=== PATIENT | female | born 1960 | race Caucasian/White ===

== ENCOUNTER 2017-08-26 09:25 | Emergency (ER) | payer OTHER ==
[~2017-08-26] VITALS: Ht 165.1 cm; Wt 68.5 kg
[~2017-08-26 09:25] MED LIST: ALPR-623 PO; CLOP75TA35 PO; HYDR-569 PO
[2017-08-26 09:33] VITALS: BP 137/90
[2017-08-26] MEDS ORDERED: AMOX-580 PO (09:49)
[2017-08-26] MEDS ORDERED: ALBU8.5H8 IH (09:49)
[2017-08-26] MEDS ORDERED: METH4TAB81 PO (09:49)
== END 2017-08-26 10:11 | disposition home or self-care (01) ==
LOC: ER 09:25
DX: J02.9 Acute pharyngitis, unspecified (principal); R19.7 Diarrhea, unspecified; Z86.73 Personal history of transient ischemic attack (TIA), and cerebral infarction without residual deficits
CPT/HCPCS: 99283

== ENCOUNTER 2017-10-29 13:01 | Outpatient (CLI) | payer OTHER ==
[~2017-10-29 13:01] MED LIST changes: +ALBU8.5H8 IH; +METH4TAB81 PO
== END 2017-10-29 23:59 | disposition home or self-care (01) ==
LOC: 64 CT 13:01
PROVIDERS: ATTEND Family Medicine
DX: R10.9 Unspecified abdominal pain (principal)
CPT/HCPCS: 74176

== ENCOUNTER 2018-01-04 00:37 | Outpatient (CLI) | payer OTHER ==
[2018-01-04 09:11] LABS: BASOPHILS # (AUTO) 0.1 X10'3 (0-0.2); BASOPHILS % (AUTO) 1.2 % (0-1); EOSINOPHILS # (AUTO) 0.3 X10'3 (0-0.9); EOSINOPHILS % (AUTO) 4.7 % (0-6); HEMATOCRIT 40.6 % (35.0-45.0); HEMOGLOBIN 14.3 g/dl (12.0-16.0); LYMPHOCYTES # (AUTO) 1.5 X10'3 (1.1-4.8); LYMPHOCYTES % (AUTO) 24.6 % (21-51); MEAN CORPUSCULAR HGB CONC 35.1 % (33.0-36.5); MEAN CORPUSCULAR VOLUME 91.2 FL (78-98); MEAN PLATELET VOLUME 8.7 FL (7.4-10.4); MONOCYTES # (AUTO) 0.4 X10'3 (0-0.9); MONOCYTES % (AUTO) 7.4 % (2-12); NEUTROPHILS # (AUTO) 3.8 X10'3 (1.8-7.7); NEUTROPHILS % (AUTO) 62.1 % (42-75); PLATELET COUNT 248 X10'3 (140-440); RED BLOOD COUNT 4.46 X10'6 (4.20-5.60); RED CELL DISTRIBUTION WIDTH 13.4 % (11.5-14.5)
[2018-01-04 09:37] LABS: ALANINE AMINOTRANSFERASE 26 U/L (12-78); ALBUMIN 3.6 G/DL (3.4-5.0); ALBUMIN/GLOBULIN RATIO 1.2 (1.1-1.5); ALKALINE PHOSPHATASE 94 IU/L (46-116); ANION GAP 10 (8-16); ASPARTATE AMINO TRANSFERASE 16 U/L (10-37); BILIRUBIN,TOTAL 1.1 MG/DL (0.1-1.0); BLOOD UREA NITROGEN 12 MG/DL (7-18); BUN/CREATININE RATIO 14.5 (6.6-38.0); CALCIUM 8.5 MG/DL (8.5-10.1); CHLORIDE 108 MMOL/L (99-107); CHOL/HDL RATIO 2.6 (0.00-4.99); CHOLESTEROL 175 MG/DL (0-200); CREATININE 0.83 MG/DL (0.40-0.90); GLUCOSE 99 MG/DL (70-104); HDL CHOLESTEROL 68 MG/DL (35-60); LDL CHOLESTEROL 99 MG/DL (50-100); POTASSIUM 3.8 MMOL/L (3.5-5.1); SODIUM 143 MMOL/L (135-145); TOTAL CARBON DIOXIDE 25.3 MMOL/L (24-32); TOTAL PROTEIN 6.7 G/DL (6.4-8.2); TRIGLYCERIDES 62 MG/DL (20-135); eGFR 71 ML/MIN
[2018-01-04 09:43] LABS: HEMOGLOBIN A1C 5.4 % (4.5-6.2)
[2018-01-04 10:59] LABS: RHEUM FACTOR QUAL REFLEX TITER NEGATIVE (Neg)
[2018-01-05 08:11] LABS: FSH, SERUM 102.1 mIU/mL (.)
[2018-01-05 13:55] LABS: ANTINUCLEAR ANTIBODIES Negative (Negative)
== END 2018-01-04 23:59 | disposition home or self-care (01) ==
LOC: LAB 00:37
PROVIDERS: ATTEND Family Medicine
DX: Z00.00 Encounter for general adult medical examination without abnormal findings (principal)
CPT/HCPCS: 36415; 80053; 80061; 82533; 83001; 83036; 84439; 84443; 85025; 86038; 86430

== ENCOUNTER 2018-01-07 06:57 | Day surgery (SDC) | payer OTHER ==
[~2018-01-07] VITALS: Ht 152.4 cm; Wt 70.5 kg
[2018-01-07 07:12] VITALS: BP 113/62
[2018-01-07] MEDS ORDERED: ALPR0.5T8 PO (07:22)
[2018-01-07] MEDS ORDERED: DULO60CA64 PO (07:22)
[2018-01-07] MEDS ORDERED: OMEP20CA10 PO (07:23)
[2018-01-07] MEDS ORDERED: RIZA10TA27 PO (07:24)
[2018-01-07] MEDS ORDERED: MIDAZolam 5mg/5ml vial ONE (08:00)
[2018-01-07] MEDS ORDERED: fentaNYL/PF 50MCG/1 ML 2ML syringe ONE (08:00)
[2018-01-07 09:07] VITALS: BP 112/50
[2018-01-07 09:17] VITALS: BP 97/56
[2018-01-07 09:27] VITALS: BP 104/55
[2018-01-07 09:36] VITALS: BP 96/59
== END 2018-01-07 09:40 | disposition home or self-care (01) ==
LOC: GI LAB 06:57
PROVIDERS: ATTEND Internal Medicine Gastroenterology
DX: D12.3 Benign neoplasm of transverse colon (principal); D12.7 Benign neoplasm of rectosigmoid junction; K64.8 Other hemorrhoids; K21.9 Gastro-esophageal reflux disease without esophagitis; F17.210 Nicotine dependence, cigarettes, uncomplicated; Z90.5 Acquired absence of kidney; Z72.89 Other problems related to lifestyle; Z90.710 Acquired absence of both cervix and uterus; Z79.01 Long term (current) use of anticoagulants; Z85.528 Personal history of other malignant neoplasm of kidney; Z88.8 Allergy status to other drugs, medicaments and biological substances; Z86.73 Personal history of transient ischemic attack (TIA), and cerebral infarction without residual deficits; Z79.899 Other long term (current) drug therapy; Z98.890 Other specified postprocedural states
CPT/HCPCS: 45380; 45385; 99152; 99153; J2250; J3010; J7030; A4620; G0500

== ENCOUNTER 2018-01-21 14:26 | Emergency (ER) | payer OTHER ==
[~2018-01-21] VITALS: Ht 152.4 cm; Wt 73.8 kg
[~2018-01-21 14:26] MED LIST changes: -ALBU8.5H8 IH; -ALPR-623 PO; +ALPR0.5T8 PO; +DULO60CA64 PO; -HYDR-569 PO; -METH4TAB81 PO; +OMEP20CA10 PO; +RIZA10TA27 PO
[2018-01-21 14:36] VITALS: BP 116/70
[2018-01-21] MEDS ORDERED: dexamethasone sod phosphate 10mg/ml inj IM STA (14:41)
== END 2018-01-21 15:01 | disposition home or self-care (01) ==
LOC: ER 14:26
DX: T14.8XXA Other injury of unspecified body region, initial encounter (principal); M25.50 Pain in unspecified joint; Z86.73 Personal history of transient ischemic attack (TIA), and cerebral infarction without residual deficits; Z90.710 Acquired absence of both cervix and uterus; Z79.899 Other long term (current) drug therapy; W57.XXXA Bitten or stung by nonvenomous insect and other nonvenomous arthropods, initial encounter; Y93.89 Activity, other specified; Y92.89 Other specified places as the place of occurrence of the external cause; Y99.8 Other external cause status
CPT/HCPCS: 96372; 99283; J1100

== ENCOUNTER 2018-04-23 10:35 | Outpatient (CLI) | payer OTHER | END 2018-04-23 23:59 | disposition home or self-care (01) | LOC: RAD 10:35 | PROVIDERS: ATTEND Pediatrics Sports Medicine | DX: M50.222 Other cervical disc displacement at C5-C6 level (principal); S92.355D Nondisplaced fracture of fifth metatarsal bone, left foot, subsequent encounter for fracture with routine healing; M79.672 Pain in left foot; F17.200 Nicotine dependence, unspecified, uncomplicated; Z68.23 Body mass index [BMI] 23.0-23.9, adult; Z79.899 Other long term (current) drug therapy; Z85.528 Personal history of other malignant neoplasm of kidney; X58.XXXD Exposure to other specified factors, subsequent encounter | CPT/HCPCS: 72141 ==

== ENCOUNTER 2018-06-04 04:33 | Outpatient (CLI) | payer SELFPAY | END 2018-06-04 23:59 | disposition home or self-care (01) | LOC: HW VAS 04:33 | DX: Z13.6 Encounter for screening for cardiovascular disorders (principal) ==

== ENCOUNTER 2018-10-30 14:34 | Emergency (ER) | payer OTHER, SELFPAY ==
[~2018-10-30] VITALS: Ht 152.4 cm; Wt 70.5 kg
[2018-10-30 14:39] VITALS: BP 125/88
[2018-10-30] MEDS ORDERED: BENZ-16 PO (14:49)
[2018-10-30] MEDS ORDERED: pseudoephedrine 30mg tablet PO ONE (14:50)
[2018-10-30] MEDS ORDERED: benzonatate 100mg capsule PO ONE (14:50)
[2018-10-30] MEDS ORDERED: acetaminophen 325mg tablet PO ONE (14:50)
== END 2018-10-30 15:13 | disposition home or self-care (01) ==
LOC: ER 14:34
DX: J06.9 Acute upper respiratory infection, unspecified (principal); R05 Cough; F41.9 Anxiety disorder, unspecified; Z86.73 Personal history of transient ischemic attack (TIA), and cerebral infarction without residual deficits; Z90.710 Acquired absence of both cervix and uterus; Z88.8 Allergy status to other drugs, medicaments and biological substances; Z79.899 Other long term (current) drug therapy
CPT/HCPCS: 99284

== ENCOUNTER 2018-12-10 22:15 | Emergency (ER) | payer OTHER ==
[~2018-12-10] VITALS: Ht 152.4 cm; Wt 70.5 kg
[2018-12-10 22:26] VITALS: BP 128/85
[2018-12-10] MEDS ORDERED: ketorolac trometh inj. 60 MG/2 ML VIAL IM ONE (22:35)
[2018-12-10] MEDS ORDERED: CYCL-1 PO (22:57)
[2018-12-10] MEDS ORDERED: cyclobenzaprine 10mg tablet PO ONE (23:00)
== END 2018-12-10 23:17 | disposition home or self-care (01) ==
LOC: ER 22:16
DX: S39.012A Strain of muscle, fascia and tendon of lower back, initial encounter (principal); M62.830 Muscle spasm of back; M25.561 Pain in right knee; M25.512 Pain in left shoulder; Z90.710 Acquired absence of both cervix and uterus; Z98.890 Other specified postprocedural states; Z86.73 Personal history of transient ischemic attack (TIA), and cerebral infarction without residual deficits; Z88.8 Allergy status to other drugs, medicaments and biological substances; Z79.899 Other long term (current) drug therapy; W01.0XXA Fall on same level from slipping, tripping and stumbling without subsequent striking against object, initial encounter; Y93.89 Activity, other specified; Y92.89 Other specified places as the place of occurrence of the external cause; Y99.8 Other external cause status
CPT/HCPCS: 72100; 96372; 99284; J1885

== ENCOUNTER 2018-12-27 11:07 | Outpatient (CLI) | payer OTHER ==
[~2018-12-27 11:07] MED LIST changes: +CYCL-1 PO; -OMEP20CA10 PO; +OMEP20CA11 PO
== END 2018-12-27 23:59 | disposition home or self-care (01) ==
LOC: RAD 11:07
PROVIDERS: ATTEND Family Medicine
DX: R10.11 Right upper quadrant pain (principal); Z90.5 Acquired absence of kidney
CPT/HCPCS: 76700

== ENCOUNTER 2019-04-16 15:05 | Emergency (ER) | payer SELFPAY ==
[~2019-04-16] VITALS: Ht 152.4 cm; Wt 70.5 kg
[~2019-04-16 15:05] MED LIST changes: -DULO60CA64 PO; +DULO60CA65 PO
[2019-04-16 15:13] VITALS: BP 126/86
[2019-04-16] MEDS ORDERED: AMOX-580 PO (16:39)
== END 2019-04-16 17:11 | disposition home or self-care (01) ==
LOC: ER 15:06
DX: J32.9 Chronic sinusitis, unspecified (principal); F41.9 Anxiety disorder, unspecified; Z86.73 Personal history of transient ischemic attack (TIA), and cerebral infarction without residual deficits; Z90.710 Acquired absence of both cervix and uterus; Z88.8 Allergy status to other drugs, medicaments and biological substances; Z88.6 Allergy status to analgesic agent
CPT/HCPCS: 99283

== ENCOUNTER 2019-04-29 07:10 | Outpatient (CLI) | payer SELFPAY ==
[~2019-04-29 07:10] MED LIST changes: +AMOX-580 PO
[2019-04-29 11:02] LABS: HEMOGLOBIN A1C 5.1 % (4.5-6.2)
[2019-04-29 11:14] LABS: CHOL/HDL RATIO 3.15 (0.00-4.99)
== END 2019-04-29 23:59 | disposition home or self-care (01) ==
LOC: HW HEART 07:10
DX: Z13.6 Encounter for screening for cardiovascular disorders (principal)
CPT/HCPCS: 36415

== ENCOUNTER 2019-05-20 16:00 | Emergency (ER) | payer OTHER, SELFPAY ==
[~2019-05-20] VITALS: Ht 152.4 cm; Wt 68.0 kg
[~2019-05-20 16:00] MED LIST changes: -AMOX-580 PO
[2019-05-20 16:04] VITALS: BP 154/79
[2019-05-20] MEDS ORDERED: ketorolac trometh inj. 60 MG/2 ML VIAL IM ONE ×2 (16:10→16:20)
[2019-05-20] MEDS ORDERED: TRAM50TA2 PO (16:14)
[2019-05-20] MEDS ORDERED: CYCL-1 PO (16:14)
== END 2019-05-20 16:43 | disposition home or self-care (01) ==
LOC: ER 16:00
DX: S16.1XXA Strain of muscle, fascia and tendon at neck level, initial encounter (principal); M62.830 Muscle spasm of back; F41.9 Anxiety disorder, unspecified; F10.99 Alcohol use, unspecified with unspecified alcohol-induced disorder; Z90.710 Acquired absence of both cervix and uterus; Z98.890 Other specified postprocedural states; Z86.73 Personal history of transient ischemic attack (TIA), and cerebral infarction without residual deficits; Z88.8 Allergy status to other drugs, medicaments and biological substances; Z79.899 Other long term (current) drug therapy; V87.7XXA Person injured in collision between other specified motor vehicles (traffic), initial encounter; Y93.89 Activity, other specified; Y92.410 Unspecified street and highway as the place of occurrence of the external cause; Y99.8 Other external cause status; Y90.9 Presence of alcohol in blood, level not specified
CPT/HCPCS: 96372; 99283; J1885

== ENCOUNTER 2019-07-04 09:45 | Outpatient (CLI) | payer OTHER ==
[~2019-07-04] VITALS: Ht 152.4 cm; Wt 68.5 kg
[~2019-07-04 09:45] MED LIST changes: +OMEP-297 PO; -OMEP20CA11 PO
[2019-07-04] MEDS ORDERED: NORMAL SALINE IV ONE (11:00)
[2019-07-04] MEDS ORDERED: SINCALIDE IV ONE (11:00)
== END 2019-07-04 23:59 | disposition home or self-care (01) ==
LOC: RAD 09:45
PROVIDERS: ATTEND Family Medicine
DX: R10.11 Right upper quadrant pain (principal); F17.200 Nicotine dependence, unspecified, uncomplicated; Z72.89 Other problems related to lifestyle; Z90.710 Acquired absence of both cervix and uterus; Z85.528 Personal history of other malignant neoplasm of kidney; Z98.890 Other specified postprocedural states
CPT/HCPCS: 78227; A9537; J2805

== ENCOUNTER 2019-07-04 09:51 | Outpatient (CLI) | payer OTHER | END 2019-07-04 23:59 | disposition home or self-care (01) | LOC: RAD 09:51 | PROVIDERS: ATTEND Chiropractor | DX: S33.5XXA Sprain of ligaments of lumbar spine, initial encounter (principal); M48.061 Spinal stenosis, lumbar region without neurogenic claudication; X58.XXXA Exposure to other specified factors, initial encounter; Y93.89 Activity, other specified; Y92.89 Other specified places as the place of occurrence of the external cause; Y99.8 Other external cause status | CPT/HCPCS: 72148 ==

== ENCOUNTER 2019-07-21 03:49 | Emergency (ER) | payer OTHER ==
[~2019-07-21] VITALS: Ht 152.4 cm; Wt 61.1 kg
[2019-07-21] MEDS ORDERED: normal saline 1000ml 1,000 ML IV ONE (04:05)
--- NOTE | 2019-07-21 04:09 | NUR ---
DISCUSSED PT'S EMESIS WITH LES GUERRA; NEW ORDER FOR [facility] RECEIVED.
[2019-07-21] MEDS ORDERED: ondansetron/PF 4mg/2ml inj IV ONE ×2 (04:10→04:30)
[2019-07-21] MEDS ORDERED: famotidine/PF 10 mg/ml inj IV ONE (04:15)
[2019-07-21] MEDS ORDERED: pantoprazole 40 MG vial IV ONE (04:15)
[2019-07-21 04:27] LABS: BASOPHILS # (AUTO) 0.1 X10'3 (0-0.2); BASOPHILS % (AUTO) 0.5 % (0-1); EOSINOPHILS % (AUTO) 0.3 % (0-6); HEMATOCRIT 45.2 % (35.0-45.0); HEMOGLOBIN 15.5 g/dl (12.0-16.0); LYMPHOCYTES # (AUTO) 1.9 X10'3 (1.1-4.8); MEAN CORPUSCULAR HEMOGLOBIN 31.9 PG (27.0-31.0); MEAN CORPUSCULAR HGB CONC 34.3 g/dL (33.0-36.5); MEAN CORPUSCULAR VOLUME 92.9 FL (78-98); MEAN PLATELET VOLUME 8.3 FL (7.4-10.4); MONOCYTES # (AUTO) 0.8 X10'3 (0-0.9); MONOCYTES % (AUTO) 5.6 % (2-12); NEUTROPHILS # (AUTO) 11.5 X10'3 (1.8-7.7); NEUTROPHILS % (AUTO) 80.6 % (42-75); PLATELET COUNT 290 X10'3 (140-440); RED BLOOD COUNT 4.86 X10'6 (4.20-5.60); RED CELL DISTRIBUTION WIDTH 13.7 % (11.5-14.5); WHITE BLOOD COUNT 14.3 X10'3 (4.5-11.0)
[2019-07-21] MEDS ORDERED: normal saline 1000ML IV soln IVB ONE (04:30)
[2019-07-21] MEDS ORDERED: morphine 4 MG/ML inj SYRINge IV PRN (04:30)
[2019-07-21 04:37] LABS: ALANINE AMINOTRANSFERASE 28 U/L (12-78); ALBUMIN 4.4 G/DL (3.4-5.0); ALBUMIN/GLOBULIN RATIO 1.3 (1.1-1.5); ALKALINE PHOSPHATASE 82 IU/L (46-116); ANION GAP 12 (8-16); ASPARTATE AMINO TRANSFERASE 17 U/L (10-37); BILIRUBIN,TOTAL 1.1 MG/DL (0.1-1.0); BLOOD UREA NITROGEN 24 MG/DL (7-18); BUN/CREATININE RATIO 23.3 (6.6-38.0); CALCIUM 9.8 MG/DL (8.5-10.1); CHLORIDE 104 MMOL/L (99-107); CREATININE 1.03 MG/DL (0.40-0.90); GLUCOSE 132 MG/DL (70-104); LIPASE 65 U/L (73-393); POTASSIUM 3.3 MMOL/L (3.5-5.1); SODIUM 140 MMOL/L (135-145); TOTAL CARBON DIOXIDE 23.7 MMOL/L (24-32); TOTAL PROTEIN 7.7 G/DL (6.4-8.2); eGFR 55 ML/MIN
[2019-07-21 04:50] VITALS: BP 169/97
[2019-07-21] MEDS ORDERED: proCHLORperazine 10 MG/2 ml inj IV ONE (04:50)
[2019-07-21 04:52] LABS: OCCULT BLOOD STOOL NEGATIVE (Neg)
[2019-07-21] MEDS ORDERED: ONDA4TAB6 PO (05:39)
== END 2019-07-21 05:48 | disposition home or self-care (01) ==
LOC: EEVIPCON 03:49 → ER 03:49
DX: K29.70 Gastritis, unspecified, without bleeding (principal); E86.0 Dehydration; F41.9 Anxiety disorder, unspecified; F10.99 Alcohol use, unspecified with unspecified alcohol-induced disorder; Z86.73 Personal history of transient ischemic attack (TIA), and cerebral infarction without residual deficits; Z90.710 Acquired absence of both cervix and uterus; Z98.890 Other specified postprocedural states; Z88.8 Allergy status to other drugs, medicaments and biological substances; Z79.899 Other long term (current) drug therapy; Y90.9 Presence of alcohol in blood, level not specified
CPT/HCPCS: 36415; 74176; 80053; 82272; 83690; 85025; 96361; 96374; 96375; 99284; C9113; J0780; J2405; J3490; J7030

== ENCOUNTER 2019-07-23 11:07 | Inpatient (IN) | payer OTHER ==
[~2019-07-23] VITALS: Ht 152.4 cm; Wt 72.5 kg
[~2019-07-23 11:07] MED LIST changes: +ONDA4TAB6 PO
[2019-07-23 11:51] LABS: BASOPHILS # (AUTO) 0.1 X10'3 (0-0.2); BASOPHILS % (AUTO) 0.8 % (0-1); EOSINOPHILS # (AUTO) 0.2 X10'3 (0-0.9); HEMATOCRIT 46.4 % (35.0-45.0); HEMOGLOBIN 16.4 g/dl (12.0-16.0); MEAN CORPUSCULAR HEMOGLOBIN 32.5 PG (27.0-31.0); MEAN CORPUSCULAR HGB CONC 35.4 g/dL (33.0-36.5); MEAN CORPUSCULAR VOLUME 91.9 FL (78-98); MEAN PLATELET VOLUME 8.1 FL (7.4-10.4); MONOCYTES # (AUTO) 0.8 X10'3 (0-0.9); MONOCYTES % (AUTO) 7.2 % (2-12); NEUTROPHILS # (AUTO) 7.8 X10'3 (1.8-7.7); PLATELET COUNT 285 X10'3 (140-440); RED BLOOD COUNT 5.05 X10'6 (4.20-5.60); RED CELL DISTRIBUTION WIDTH 13.1 % (11.5-14.5); WHITE BLOOD COUNT 10.9 X10'3 (4.5-11.0)
[2019-07-23 11:56] LABS: ALANINE AMINOTRANSFERASE 32 U/L (12-78); ALBUMIN 3.9 G/DL (3.4-5.0); ALBUMIN/GLOBULIN RATIO 1.3 (1.1-1.5); ALKALINE PHOSPHATASE 81 IU/L (46-116); ANION GAP 9 (8-16); ASPARTATE AMINO TRANSFERASE 13 U/L (10-37); BILIRUBIN,TOTAL 1.8 MG/DL (0.1-1.0); BLOOD UREA NITROGEN 18 MG/DL (7-18); BUN/CREATININE RATIO 14.4 (6.6-38.0); CALCIUM 9.2 MG/DL (8.5-10.1); CHLORIDE 103 MMOL/L (99-107); CREATININE 1.25 MG/DL (0.40-0.90); GLUCOSE 126 MG/DL (70-104); LIPASE 120 U/L (73-393); POTASSIUM 3.1 MMOL/L (3.5-5.1); SODIUM 138 MMOL/L (135-145); TOTAL CARBON DIOXIDE 26.2 MMOL/L (24-32); eGFR 44 ML/MIN
[2019-07-23] MEDS ORDERED: ondansetron/PF 4mg/2ml inj IV ONE (12:15)
[2019-07-23] MEDS ORDERED: morphine 4 MG/ML inj SYRINge IV PRN (12:15)
[2019-07-23] MEDS ORDERED: normal saline 1000ML IV soln IVB ONE (12:15)
[2019-07-23] MEDS ORDERED: acetaminophen 650mg rectal suppository RC PRN (12:45)
[2019-07-23] MEDS ORDERED: acetaminophen 325mg tablet PO PRN ×2 (12:45)
[2019-07-23] MEDS ORDERED: magnesium Cl slow-release 64mg tablet PO PRN (12:45)
[2019-07-23] MEDS ORDERED: bisacodyl 10mg suppository rectal RC PRN (12:45)
[2019-07-23] MEDS ORDERED: metoclopramide 5 mg/ml inj IV PRN (12:45)
[2019-07-23] MEDS ORDERED: potassium 10mEq/100ml NS w/LIDOcaine (10mg/bag) IV ONE (12:45)
[2019-07-23] MEDS ORDERED: magnesium hydroxide 30ml (MOM) UD suspension PO PRN (12:45)
[2019-07-23] MEDS ORDERED: potassium CL 10mEq/100ml bag 100 ML IV PRN (12:45)
[2019-07-23] MEDS ORDERED: diphenhydrAMINE 25mg capsule PO PRN (12:45)
[2019-07-23] MEDS ORDERED: HYDROcodone/acetaminophen 10/325mg tab PO PRN (12:45)
[2019-07-23] MEDS ORDERED: pantoprazole 40 MG vial IV SCH (12:45)
[2019-07-23] MEDS ORDERED: diphenhydrAMINE 50 mg/ml inj IV PRN (12:45)
[2019-07-23] MEDS ORDERED: mag hydrox/Alum hydrox/simeth 30ml oral suspension PO PRN ×2 (12:45)
[2019-07-23] MEDS ORDERED: HYDROcodone/acetaminophen 5mg/325mg tablet PO PRN (12:45)
[2019-07-23] MEDS ORDERED: magnesium 4gm in 100ml NS 100 ML IV PRN (12:45)
[2019-07-23] MEDS ORDERED: magnesium 2GM in 50ml NS 50 ML IV PRN (12:45)
[2019-07-23] MEDS ORDERED: potassium Cl 20 mEq SR tablet PO PRN ×2 (12:45)
[2019-07-23 13:05] LABS: PHOSPHORUS 2.9 MG/DL (2.3-4.5)
[2019-07-23] MEDS ORDERED: potassium Cl 10 mEq/100mL bag IV ONE (13:05)
[2019-07-23 13:18] LABS: H PYLORI ANTIBODY NEGATIVE (Neg)
[2019-07-23] MEDS ORDERED: RIZA10TA27 PO (14:29)
[2019-07-23] MEDS ORDERED: PANT-47 PO (14:29)
[2019-07-23] MEDS ORDERED: CLOP75TA33 PO (14:30)
[2019-07-23] MEDS ORDERED: DULO-31 PO (14:31)
[2019-07-23] MEDS: ondansetron/PF 4mg/2ml inj IV PRN ×2 (14:33→23:08)
--- NOTE | 2019-07-23 15:14 | NUR ---
RECEIVED REPORT AND PATIENT FROM ER.
[2019-07-23] MEDS ORDERED: pneumococcal 23-VAL P-sac vacc 25 mcg/0.5ml vial IMVAC ONE (15:40)
[2019-07-23 16:00] LABS: URINE HCG NEGATIVE (NEG)
[2019-07-23 16:03] LABS: COLOR,URINE YELLOW (Yellow); GLUCOSE, URINE NEGATIVE (Neg); KETONES,URINE NEGATIVE (Neg); LEUKOCYTE ESTERASE ,URINE TRACE (Neg); NITRITES, URINE NEGATIVE (Neg); OCCULT BLOOD,URINE SMALL (Neg); PH,URINE 6.5 (4.8-8.0); PROTEIN,URINE NEGATIVE (Neg); UROBILINOGEN,URINE 0.2 E.U/dL (0.2-1.0)
[2019-07-23 16:09] LABS: CLARITY,URINE SLIGHTLY CLOUDY (Clear); UA COLLECTION TYPE CLN CATCH MIDSTREAM
[2019-07-23] MEDS: ringers solution, lacted 1,000 ML IV SCH (16:09)
[2019-07-23 16:10] LABS: BACTERIA,URINE 1+ /HPF (Neg); MUCUS STRANDS MODERATE /LPF (Neg); RBC,URINE 0-2 /HPF (0-2); SQUAMOUS EPITHELIAL CELL,UR FEW /LPF (FEW); WBC,URINE 0-4 /HPF (0-4)
[2019-07-23 16:11] LABS: HYALINE CASTS 0-3 /LPF (NEGATIVE)
[2019-07-23] MEDS: potassium CL 10mEq/100ml bag 100 ML IV PRN ×3 (17:50→20:25)
[2019-07-23 18:00] VITALS: BP 112/84
--- NOTE | 2019-07-23 18:41 | NUR ---
Patient in room [facility] 4006. I have received report from Diana MENDOZA and had the opportunity to ask questions and assume patient care.
[2019-07-23] MEDS: docusate sod 100mg capsule PO SCH (19:37)
[2019-07-23] MEDS: heparin, porcine 5000 units/ml vial SQ SCH (19:39)
[2019-07-23] MEDS: K and/or MAG REPLACEMENT MC SCH (19:41)
[2019-07-23] MEDS: clopidogrel 75mg tablet PO SCH (20:24)
[2019-07-23 22:00] VITALS: BP 111/79
[2019-07-24] VITALS (10 sets, daily range): BP systolic 107–126; BP diastolic 55–88
[2019-07-24] MEDS: temazepam 15mg capsule PO PRN ×3 (01:38→23:16)
[2019-07-24] MEDS: ringers solution, lacted 1,000 ML IV SCH ×3 (03:54→18:45)
[2019-07-24 06:20] LABS: BASOPHILS # (AUTO) 0.1 X10'3 (0-0.2); EOSINOPHILS # (AUTO) 0.3 X10'3 (0-0.9); EOSINOPHILS % (AUTO) 3.8 % (0-6); HEMATOCRIT 36.6 % (35.0-45.0); HEMOGLOBIN 12.9 g/dl (12.0-16.0); LYMPHOCYTES # (AUTO) 2.6 X10'3 (1.1-4.8); LYMPHOCYTES % (AUTO) 37.9 % (21-51); MEAN CORPUSCULAR HEMOGLOBIN 32.2 PG (27.0-31.0); MEAN CORPUSCULAR HGB CONC 35.1 g/dL (33.0-36.5); MEAN CORPUSCULAR VOLUME 91.7 FL (78-98); MEAN PLATELET VOLUME 8.1 FL (7.4-10.4); MONOCYTES # (AUTO) 0.5 X10'3 (0-0.9); MONOCYTES % (AUTO) 7.7 % (2-12); NEUTROPHILS # (AUTO) 3.5 X10'3 (1.8-7.7); NEUTROPHILS % (AUTO) 49.6 % (42-75); PLATELET COUNT 208 X10'3 (140-440); RED CELL DISTRIBUTION WIDTH 13.3 % (11.5-14.5)
[2019-07-24 06:34] LABS: ALANINE AMINOTRANSFERASE 23 U/L (12-78); ALBUMIN 2.6 G/DL (3.4-5.0); ALBUMIN/GLOBULIN RATIO 1.1 (1.1-1.5); ALKALINE PHOSPHATASE 58 IU/L (46-116); ANION GAP 8 (8-16); ASPARTATE AMINO TRANSFERASE 11 U/L (10-37); BILIRUBIN,TOTAL 1.4 MG/DL (0.1-1.0); BLOOD UREA NITROGEN 9 MG/DL (7-18); BUN/CREATININE RATIO 10.8 (6.6-38.0); CHLORIDE 111 MMOL/L (99-107); CREATININE 0.83 MG/DL (0.40-0.90); GLUCOSE 95 MG/DL (70-104); MAGNESIUM 1.8 MG/DL (1.5-2.4); PHOSPHORUS 2.9 MG/DL (2.3-4.5); POTASSIUM 3.5 MMOL/L (3.5-5.1); SODIUM 143 MMOL/L (135-145); TOTAL CARBON DIOXIDE 24.5 MMOL/L (24-32); TOTAL PROTEIN 4.9 G/DL (6.4-8.2); eGFR 70 ML/MIN
--- NOTE | 2019-07-24 06:34 | NUR ---
Problems reprioritized. Patient report given, questions answered & plan of care reviewed with Elo MENDOZA.
[2019-07-24] MEDS: heparin, porcine 5000 units/ml vial SQ SCH ×2 (08:00→20:04)
[2019-07-24] MEDS: K and/or MAG REPLACEMENT MC SCH ×2 (08:09→20:00)
[2019-07-24] MEDS: pantoprazole 40mg Tablet.DR PO SCH (08:13)
[2019-07-24] MEDS: docusate sod 100mg capsule PO SCH ×2 (08:13→20:02)
--- NOTE | 2019-07-24 11:09 | NUR ---
Patient to GI LAB
[2019-07-24] MEDS ORDERED: LIDOcaine Viscous 15ml cup ONE (11:19)
[2019-07-24] MEDS ORDERED: MIDAZolam 5mg/5ml vial ONE (11:19)
[2019-07-24] MEDS ORDERED: fentaNYL/PF 50MCG/1 ML 2ML syringe ONE ×2 (11:19→13:38)
--- NOTE | 2019-07-24 18:31 | NUR ---
Problems reprioritized. Patient report given, questions answered & plan of care reviewed with Salbador MENDOZA.
[2019-07-24] MEDS ORDERED: PANT-47 PO (18:51)
[2019-07-24] MEDS: clopidogrel 75mg tablet PO SCH (20:02)
[2019-07-25] MEDS: ringers solution, lacted 1,000 ML IV SCH (04:45)
[2019-07-25 05:59] LABS: BASOPHILS # (AUTO) 0.1 X10'3 (0-0.2); EOSINOPHILS # (AUTO) 0.3 X10'3 (0-0.9); EOSINOPHILS % (AUTO) 3.9 % (0-6); HEMATOCRIT 37.4 % (35.0-45.0); HEMOGLOBIN 13.4 g/dl (12.0-16.0); LYMPHOCYTES # (AUTO) 2.3 X10'3 (1.1-4.8); LYMPHOCYTES % (AUTO) 33.2 % (21-51); MEAN CORPUSCULAR HEMOGLOBIN 32.6 PG (27.0-31.0); MEAN CORPUSCULAR HGB CONC 35.8 g/dL (33.0-36.5); MEAN PLATELET VOLUME 8.4 FL (7.4-10.4); MONOCYTES # (AUTO) 0.6 X10'3 (0-0.9); MONOCYTES % (AUTO) 8.3 % (2-12); NEUTROPHILS # (AUTO) 3.8 X10'3 (1.8-7.7); NEUTROPHILS % (AUTO) 53.6 % (42-75); PLATELET COUNT 211 X10'3 (140-440); RED BLOOD COUNT 4.11 X10'6 (4.20-5.60); RED CELL DISTRIBUTION WIDTH 13.3 % (11.5-14.5)
[2019-07-25 06:00] VITALS: BP 138/85
[2019-07-25 06:14] LABS: ALANINE AMINOTRANSFERASE 26 U/L (12-78); ALBUMIN 3.1 G/DL (3.4-5.0); ALBUMIN/GLOBULIN RATIO 1.3 (1.1-1.5); ALKALINE PHOSPHATASE 67 IU/L (46-116); ANION GAP 5 (8-16); ASPARTATE AMINO TRANSFERASE 13 U/L (10-37); BILIRUBIN,TOTAL 0.5 MG/DL (0.1-1.0); BLOOD UREA NITROGEN 10 MG/DL (7-18); BUN/CREATININE RATIO 10.5 (6.6-38.0); CALCIUM 8.5 MG/DL (8.5-10.1); CHLORIDE 109 MMOL/L (99-107); CREATININE 0.95 MG/DL (0.40-0.90); GLUCOSE 113 MG/DL (70-104); MAGNESIUM 2.1 MG/DL (1.5-2.4); PHOSPHORUS 2.6 MG/DL (2.3-4.5); POTASSIUM 3.5 MMOL/L (3.5-5.1); SODIUM 142 MMOL/L (135-145); TOTAL CARBON DIOXIDE 27.7 MMOL/L (24-32); TOTAL PROTEIN 5.4 G/DL (6.4-8.2); eGFR 60 ML/MIN
--- NOTE | 2019-07-25 06:45 | NUR ---
Patient in room [facility]006. I have received report from ANALILIA MENDOZA and had the opportunity to ask questions and assume patient care.
[2019-07-25] MEDS: K and/or MAG REPLACEMENT MC SCH (08:00)
[2019-07-25] MEDS ORDERED: duloxetine 30mg CAPSULE.DR PO SCH (08:00)
[2019-07-25] MEDS: docusate sod 100mg capsule PO SCH (09:00)
[2019-07-25] MEDS: pantoprazole 40mg Tablet.DR PO SCH (09:00)
[2019-07-25] MEDS: heparin, porcine 5000 units/ml vial SQ SCH (09:01)
--- NOTE | 2019-07-25 10:12 | NUR ---
PAGER ID: [phone] MESSAGE: [id number] RE: [id number] FYI SHE IS READY TO DC, DO YOU NEED TO SEE HER?
--- NOTE | 2019-07-28 16:09 | NUR ---
Case Management DC follow-up: LM w/pt re hospital stay/DC
--- NOTE | 2019-07-29 12:58 | NUR ---
Case Management DC follow-up: Pt returned call, reported everything was great with regard to her care.
== END 2019-07-25 12:00 | disposition home or self-care (01) | DRG 392 ==
LOC: ER 11:08 → ED HOLD 12:41 → ORTHO 4S 15:15
PROVIDERS: ADMIT Family Medicine; ATTEND Family Medicine
PROC: 3E0234Z Introduction of Serum, Toxoid and Vaccine into Muscle, Percutaneous Approach (ICD-10-PCS; 2019-07-23)
PROC: 0DB68ZX Excision of Stomach, Via Natural or Artificial Opening Endoscopic, Diagnostic (ICD-10-PCS; principal; 2019-07-24)
DX: K29.70 Gastritis, unspecified, without bleeding (principal); N17.9 Acute kidney failure, unspecified; E86.0 Dehydration; E87.6 Hypokalemia; F41.1 Generalized anxiety disorder; G43.909 Migraine, unspecified, not intractable, without status migrainosus; K20.9 Esophagitis, unspecified; F17.210 Nicotine dependence, cigarettes, uncomplicated; Z80.1 Family history of malignant neoplasm of trachea, bronchus and lung; Z82.0 Family history of epilepsy and other diseases of the nervous system; Z82.49 Family history of ischemic heart disease and other diseases of the circulatory system; Z85.51 Personal history of malignant neoplasm of bladder; Z85.528 Personal history of other malignant neoplasm of kidney; Z86.73 Personal history of transient ischemic attack (TIA), and cerebral infarction without residual deficits; Z90.5 Acquired absence of kidney; Z90.711 Acquired absence of uterus with remaining cervical stump; Z23 Encounter for immunization; Z88.6 Allergy status to analgesic agent; Z88.8 Allergy status to other drugs, medicaments and biological substances
CPT/HCPCS: 36415; 43239; 80053; 81001; 81025; 83690; 83735; 84100; 85025; 86677; 87081; 87088; 90732; 93978; 99152; 99285; A4620; C9113; G0378; J1644; J2250; J2270; J2405; J3010; J3480; J7040; J7120

== ENCOUNTER 2019-11-05 12:55 | Outpatient (CLI) | payer OTHER ==
[~2019-11-05 12:55] MED LIST changes: -ALPR0.5T8 PO; +CLOP75TA33 PO; -CLOP75TA35 PO; -CYCL-1 PO; +DULO-31 PO; -DULO60CA65 PO; -OMEP-297 PO; -ONDA4TAB6 PO; +PANT-47 PO
[2019-11-05] MEDS ORDERED: LIDOcaine 2% 5ml jelly ONE (13:35)
== END 2019-11-05 13:57 | disposition home or self-care (01) ==
LOC: WOUND CARE 12:55 → EDSTATUS 13:00 → WOUND CARE 13:57
PROVIDERS: ATTEND Nurse Practitioner
DX: L97.821 Non-pressure chronic ulcer of other part of left lower leg limited to breakdown of skin (principal); G43.909 Migraine, unspecified, not intractable, without status migrainosus; F41.9 Anxiety disorder, unspecified; F17.210 Nicotine dependence, cigarettes, uncomplicated; Z86.73 Personal history of transient ischemic attack (TIA), and cerebral infarction without residual deficits; Z90.5 Acquired absence of kidney; Z88.6 Allergy status to analgesic agent; Z88.8 Allergy status to other drugs, medicaments and biological substances; Z85.51 Personal history of malignant neoplasm of bladder; Z85.528 Personal history of other malignant neoplasm of kidney; Z90.710 Acquired absence of both cervix and uterus; Z79.899 Other long term (current) drug therapy; Z98.890 Other specified postprocedural states
CPT/HCPCS: G0463

== ENCOUNTER 2019-11-10 13:30 | Outpatient (CLI) | payer OTHER ==
[2019-11-10] MEDS ORDERED: mupirocin 2% ointment 22GM ONE (13:43)
== END 2019-11-10 13:57 | disposition home or self-care (01) ==
LOC: WOUND CARE 13:30 → EDSTATUS 13:40 → WOUND CARE 13:57
PROVIDERS: ATTEND Nurse Practitioner
DX: L97.821 Non-pressure chronic ulcer of other part of left lower leg limited to breakdown of skin (principal); G43.909 Migraine, unspecified, not intractable, without status migrainosus; F41.9 Anxiety disorder, unspecified; F17.210 Nicotine dependence, cigarettes, uncomplicated; Z86.73 Personal history of transient ischemic attack (TIA), and cerebral infarction without residual deficits; Z90.5 Acquired absence of kidney; Z85.51 Personal history of malignant neoplasm of bladder; Z85.528 Personal history of other malignant neoplasm of kidney; Z90.710 Acquired absence of both cervix and uterus; Z79.899 Other long term (current) drug therapy; Z98.890 Other specified postprocedural states
CPT/HCPCS: G0463

== ENCOUNTER 2020-02-05 15:24 | Outpatient (CLI) | payer OTHER ==
[2020-02-05 19:10] LABS: CLARITY,URINE CLEAR (Clear); COLOR,URINE YELLOW (Yellow); GLUCOSE, URINE NEGATIVE (Neg); KETONES,URINE NEGATIVE (Neg); LEUKOCYTE ESTERASE ,URINE NEGATIVE (Neg); NITRITES, URINE NEGATIVE (Neg); OCCULT BLOOD,URINE SMALL (Neg); PROTEIN,URINE NEGATIVE (Neg); UROBILINOGEN,URINE 0.2 E.U/dL (0.2-1.0)
[2020-02-05 19:13] LABS: UA COLLECTION TYPE NON-SPECIFIED
[2020-02-05 19:15] LABS: BACTERIA,URINE NONE SEEN /HPF (Neg); RBC,URINE 0-2 /HPF (0-2); SQUAMOUS EPITHELIAL CELL,UR FEW /LPF (FEW); WBC,URINE 0-4 /HPF (0-4)
[2020-02-05 19:46] LABS: BASOPHILS # (AUTO) 0.1 X10'3 (0-0.2); BASOPHILS % (AUTO) 1.4 % (0-1); EOSINOPHILS # (AUTO) 0.2 X10'3 (0-0.9); EOSINOPHILS % (AUTO) 3.1 % (0-6); HEMATOCRIT 39.8 % (35.0-45.0); HEMOGLOBIN 13.4 g/dl (12.0-16.0); LYMPHOCYTES # (AUTO) 1.9 X10'3 (1.1-4.8); LYMPHOCYTES % (AUTO) 26.3 % (21-51); MEAN CORPUSCULAR HEMOGLOBIN 31.6 PG (27.0-31.0); MEAN CORPUSCULAR HGB CONC 33.7 g/dL (33.0-36.5); MEAN PLATELET VOLUME 8.6 FL (7.4-10.4); MONOCYTES # (AUTO) 0.4 X10'3 (0-0.9); MONOCYTES % (AUTO) 5.3 % (2-12); NEUTROPHILS # (AUTO) 4.5 X10'3 (1.8-7.7); NEUTROPHILS % (AUTO) 63.9 % (42-75); PLATELET COUNT 260 X10'3 (140-440); RED BLOOD COUNT 4.23 X10'6 (4.20-5.60); RED CELL DISTRIBUTION WIDTH 13.7 % (11.5-14.5); WHITE BLOOD COUNT 7.1 X10'3 (4.5-11.0)
[2020-02-05 20:09] LABS: RHEUM FACTOR QUAL REFLEX TITER NEGATIVE (Neg)
[2020-02-05 20:12] LABS: % IRON SATURATION 28 % (11-46); IRON 104 UG/DL (49-151); TOTAL IRON BINDING CAPACITY 369 UG/DL (259-388)
[2020-02-05 20:13] LABS: ALANINE AMINOTRANSFERASE 26 U/L (12-78); ALBUMIN 3.9 G/DL (3.4-5.0); ALBUMIN/GLOBULIN RATIO 1.3 (1.1-1.5); ALKALINE PHOSPHATASE 82 IU/L (46-116); ANION GAP 7 (8-16); ASPARTATE AMINO TRANSFERASE 16 U/L (10-37); BLOOD UREA NITROGEN 16 MG/DL (7-18); BUN/CREATININE RATIO 17.8 (6.6-38.0); CALCIUM 8.5 MG/DL (8.5-10.1); CHLORIDE 107 MMOL/L (99-107); CHOLESTEROL 182 MG/DL (0-200); FERRITIN 78 NG/ML (8-252); GLUCOSE 90 MG/DL (70-104); HDL CHOLESTEROL 61 MG/DL (35-60); LDL CHOLESTEROL 107 MG/DL (50-100); POTASSIUM 3.6 MMOL/L (3.5-5.1); SODIUM 141 MMOL/L (135-145); TOTAL CARBON DIOXIDE 26.7 MMOL/L (24-32); TOTAL PROTEIN 6.9 G/DL (6.4-8.2); TRIGLYCERIDES 58 MG/DL (20-135); eGFR 64 ML/MIN
== END 2020-02-05 23:59 | disposition home or self-care (01) ==
LOC: LAB 15:24
DX: Z00.00 Encounter for general adult medical examination without abnormal findings (principal)
CPT/HCPCS: 36415; 80053; 80061; 81001; 82330; 82728; 83540; 83550; 83970; 84439; 84443; 85025; 85651; 86140; 86430

== ENCOUNTER 2020-03-10 19:32 | Emergency (ER) | payer BC ==
[~2020-03-10] VITALS: Ht 149.9 cm; Wt 71.4 kg
[2020-03-10 19:39] VITALS: BP 122/82
== END 2020-03-10 20:09 | disposition home or self-care (01) ==
LOC: EEVIPCON 19:33 → ER 19:33
DX: M79.642 Pain in left hand (principal); M79.89 Other specified soft tissue disorders; F41.9 Anxiety disorder, unspecified; F17.200 Nicotine dependence, unspecified, uncomplicated; Z86.73 Personal history of transient ischemic attack (TIA), and cerebral infarction without residual deficits; Z85.9 Personal history of malignant neoplasm, unspecified; Z90.710 Acquired absence of both cervix and uterus; Z98.890 Other specified postprocedural states; Z72.89 Other problems related to lifestyle; Z88.6 Allergy status to analgesic agent; Z88.8 Allergy status to other drugs, medicaments and biological substances; Z79.899 Other long term (current) drug therapy
CPT/HCPCS: 73130; 99283

== ENCOUNTER 2020-06-29 15:08 | Outpatient (CLI) | payer BC | END 2020-06-29 23:59 | disposition home or self-care (01) | LOC: LAB 15:08 | PROVIDERS: ATTEND Family Medicine | DX: R05 Cough (principal) | CPT/HCPCS: 71046 ==

== ENCOUNTER 2020-10-15 00:28 | Emergency (ER) | payer BC ==
[~2020-10-15] VITALS: Ht 149.9 cm; Wt 68.6 kg
[2020-10-15 00:33] VITALS: BP 123/83
[2020-10-15] MEDS ORDERED: ketorolac trometh. 30mg/ml inj. IV STA (00:39)
--- NOTE | 2020-10-15 00:41 | NUR ---
COMMON PAIN FOR HER THAT FLARES OCCASIONALLY.
[2020-10-15] MEDS ORDERED: ketorolac trometh inj. 60 MG/2 ML VIAL IM STA (00:48)
== END 2020-10-15 01:01 | disposition home or self-care (01) ==
LOC: ER 00:29 → EEVIPCON 00:29 → ER 01:01
DX: M25.552 Pain in left hip (principal); F41.9 Anxiety disorder, unspecified; Z90.710 Acquired absence of both cervix and uterus; Z98.890 Other specified postprocedural states; Z86.73 Personal history of transient ischemic attack (TIA), and cerebral infarction without residual deficits; Z72.89 Other problems related to lifestyle; Z88.8 Allergy status to other drugs, medicaments and biological substances; Z79.899 Other long term (current) drug therapy
CPT/HCPCS: 96372; 99283; J1885

== ENCOUNTER → 2021-01-03 | Outpatient (CLI) | payer BC ==
[2021-01-03 17:37] LABS: CLARITY,URINE SLIGHTLY CLOUDY (Clear); COLOR,URINE YELLOW (Yellow); GLUCOSE, URINE NEGATIVE (Neg); KETONES,URINE NEGATIVE (Neg); LEUKOCYTE ESTERASE ,URINE NEGATIVE (Neg); NITRITES, URINE NEGATIVE (Neg); OCCULT BLOOD,URINE MODERATE (Neg); PH,URINE 6.5 (4.8-8.0); PROTEIN,URINE NEGATIVE (Neg)
[2021-01-03 17:42] LABS: UA COLLECTION TYPE CLN CATCH MIDSTREAM
[2021-01-03 17:44] LABS: BASOPHILS # (AUTO) 0.1 X10'3 (0-0.2); BASOPHILS % (AUTO) 1.3 % (0-1); EOSINOPHILS # (AUTO) 0.3 X10'3 (0-0.9); EOSINOPHILS % (AUTO) 4.1 % (0-6); HEMATOCRIT 40.6 % (35.0-45.0); LYMPHOCYTES # (AUTO) 2.2 X10'3 (1.1-4.8); LYMPHOCYTES % (AUTO) 28.7 % (21-51); MEAN CORPUSCULAR HEMOGLOBIN 33.2 PG (27.0-31.0); MEAN CORPUSCULAR HGB CONC 34.5 g/dL (33.0-36.5); MEAN CORPUSCULAR VOLUME 96.3 FL (78-98); MEAN PLATELET VOLUME 8.5 FL (7.4-10.4); MONOCYTES # (AUTO) 0.5 X10'3 (0-0.9); MONOCYTES % (AUTO) 6.3 % (2-12); NEUTROPHILS # (AUTO) 4.5 X10'3 (1.8-7.7); NEUTROPHILS % (AUTO) 59.6 % (42-75); PLATELET COUNT 279 X10'3 (140-440); RED BLOOD COUNT 4.22 X10'6 (4.20-5.60); RED CELL DISTRIBUTION WIDTH 13.5 % (11.5-14.5); WHITE BLOOD COUNT 7.5 X10'3 (4.5-11.0)
[2021-01-03 17:46] LABS: BACTERIA,URINE FEW /HPF (Neg); SQUAMOUS EPITHELIAL CELL,UR MODERATE /LPF (FEW); WBC,URINE 0-4 /HPF (0-4)
[2021-01-03 18:02] LABS: ALANINE AMINOTRANSFERASE 27 U/L (12-78); ALBUMIN 3.7 G/DL (3.4-5.0); ALBUMIN/GLOBULIN RATIO 1.2 (1.1-1.5); ALKALINE PHOSPHATASE 87 IU/L (46-116); ANION GAP 9 (8-16); ASPARTATE AMINO TRANSFERASE 21 U/L (10-37); BILIRUBIN,TOTAL 0.5 MG/DL (0.1-1.0); BLOOD UREA NITROGEN 13 MG/DL (7-18); BUN/CREATININE RATIO 12.6 (6.6-38.0); CALCIUM 8.8 MG/DL (8.5-10.1); CHLORIDE 104 MMOL/L (99-107); CHOL/HDL RATIO 2.9 (0.00-4.99); CHOLESTEROL 181 MG/DL (0-200); CREATININE 1.03 MG/DL (0.40-0.90); FERRITIN 45 NG/ML (8-252); GLUCOSE 87 MG/DL (70-104); HDL CHOLESTEROL 63 MG/DL (35-60); LDL CHOLESTEROL 92 MG/DL (50-100); POTASSIUM 3.9 MMOL/L (3.5-5.1); SODIUM 140 MMOL/L (135-145); TOTAL CARBON DIOXIDE 26.9 MMOL/L (24-32); TOTAL PROTEIN 6.7 G/DL (6.4-8.2); TRIGLYCERIDES 237 MG/DL (20-135); eGFR 54 ML/MIN
[2021-01-03 18:23] LABS: % IRON SATURATION 26 % (11-46); IRON 94 UG/DL (49-151); TOTAL IRON BINDING CAPACITY 359 UG/DL (259-388)
== END | disposition home or self-care (01) ==
LOC: LAB 14:48
PROVIDERS: ATTEND Family Medicine
DX: Z00.01 Encounter for general adult medical examination with abnormal findings (principal)
CPT/HCPCS: 36415; 80053; 80061; 81001; 82728; 83001; 83540; 83550; 84439; 84443; 85025

== ENCOUNTER 2021-01-12 08:23 | Day surgery (SDC) | payer BC ==
[~2021-01-12] VITALS: Ht 152.4 cm; Wt 68.2 kg
[2021-01-12 08:34] VITALS: BP 100/63
[2021-01-12] MEDS ORDERED: CLOP75TA15 PO (08:39)
[2021-01-12] MEDS ORDERED: MIDAZolam 1 MG/ML 5ML VIAL ONE (08:43)
[2021-01-12] MEDS ORDERED: fentaNYL/PF 50MCG/1 ML 2ML syringe ONE (08:43)
[2021-01-12 09:40] VITALS: BP 100/54
[2021-01-12 09:50] VITALS: BP 96/57
[2021-01-12 10:00] VITALS: BP 104/65
[2021-01-12 10:10] VITALS: BP 114/55
== END 2021-01-12 10:15 | disposition home or self-care (01) ==
LOC: GI LAB 08:23
PROVIDERS: ATTEND Internal Medicine Gastroenterology
DX: Z12.11 Encounter for screening for malignant neoplasm of colon (principal); K63.89 Other specified diseases of intestine; J45.909 Unspecified asthma, uncomplicated; F17.290 Nicotine dependence, other tobacco product, uncomplicated; Z86.73 Personal history of transient ischemic attack (TIA), and cerebral infarction without residual deficits; Z85.528 Personal history of other malignant neoplasm of kidney; Z79.01 Long term (current) use of anticoagulants; Z79.899 Other long term (current) drug therapy
CPT/HCPCS: 45378; 99152; J2250; J3010; J7040; A4620

== ENCOUNTER 2021-03-29 14:19 | Outpatient (CLI) | payer BC ==
[~2021-03-29 14:19] MED LIST changes: +CLOP75TA15 PO; -CLOP75TA33 PO; -DULO-31 PO; -PANT-47 PO; -RIZA10TA27 PO
== END 2021-03-29 23:59 | disposition home or self-care (01) ==
LOC: LAB 14:19
PROVIDERS: ATTEND Family Medicine
DX: N39.0 Urinary tract infection, site not specified (principal)
CPT/HCPCS: 87088

== ENCOUNTER 2021-04-27 14:43 | Outpatient (CLI) | payer BC ==
[2021-04-27 13:32] LABS: BASOPHILS # (AUTO) 0.1 X10'3 (0-0.2); BASOPHILS % (AUTO) 1.5 % (0-1); EOSINOPHILS # (AUTO) 0.3 X10'3 (0-0.9); EOSINOPHILS % (AUTO) 4.5 % (0-6); HEMATOCRIT 40.8 % (35.0-45.0); HEMOGLOBIN 14.2 g/dl (12.0-16.0); LYMPHOCYTES # (AUTO) 1.2 X10'3 (1.1-4.8); LYMPHOCYTES % (AUTO) 20.7 % (21-51); MEAN CORPUSCULAR HEMOGLOBIN 32.1 PG (27.0-31.0); MEAN CORPUSCULAR HGB CONC 34.9 g/dL (33.0-36.5); MEAN PLATELET VOLUME 7.8 FL (7.4-10.4); MONOCYTES # (AUTO) 0.4 X10'3 (0-0.9); MONOCYTES % (AUTO) 6.5 % (2-12); NEUTROPHILS # (AUTO) 3.8 X10'3 (1.8-7.7); NEUTROPHILS % (AUTO) 66.8 % (42-75); PLATELET COUNT 260 X10'3 (140-440); RED BLOOD COUNT 4.43 X10'6 (4.20-5.60); RED CELL DISTRIBUTION WIDTH 14.1 % (11.5-14.5); WHITE BLOOD COUNT 5.7 X10'3 (4.5-11.0)
[2021-04-27 14:08] LABS: ALANINE AMINOTRANSFERASE 25 U/L (12-78); ALBUMIN 3.8 G/DL (3.4-5.0); ALBUMIN/GLOBULIN RATIO 1.3 (1.1-1.5); ALKALINE PHOSPHATASE 77 IU/L (46-116); ANION GAP 7 (8-16); ASPARTATE AMINO TRANSFERASE 20 U/L (10-37); BILIRUBIN,TOTAL 1.1 MG/DL (0.1-1.0); BLOOD UREA NITROGEN 17 MG/DL (7-18); BUN/CREATININE RATIO 18.7 (6.6-38.0); C-REACTIVE PROTEIN 0.13 MG/DL (0.0-0.5); CHLORIDE 108 MMOL/L (99-107); CHOL/HDL RATIO 2.8 (0.00-4.99); CHOLESTEROL 174 MG/DL (0-200); CREATININE 0.91 MG/DL (0.40-0.90); FERRITIN 58 NG/ML (8-252); GLUCOSE 100 MG/DL (70-104); HDL CHOLESTEROL 63 MG/DL (35-60); LDL CHOLESTEROL 96 MG/DL (50-100); POTASSIUM 4.6 MMOL/L (3.5-5.1); SODIUM 143 MMOL/L (135-145); TOTAL CARBON DIOXIDE 27.6 MMOL/L (24-32); TOTAL PROTEIN 6.8 G/DL (6.4-8.2); TRIGLYCERIDES 69 MG/DL (20-135); eGFR 63 ML/MIN
[2021-04-27 14:48] LABS: CLARITY,URINE SLIGHTLY CLOUDY (Clear); COLOR,URINE YELLOW (Yellow); GLUCOSE, URINE NEGATIVE (Neg); PH,URINE 7.5 (4.8-8.0); PROTEIN,URINE NEGATIVE (Neg); UA COLLECTION TYPE CLN CATCH MIDSTREAM
[2021-04-27 14:49] LABS: KETONES,URINE NEGATIVE (Neg); LEUKOCYTE ESTERASE ,URINE NEGATIVE (Neg); NITRITES, URINE NEGATIVE (Neg); OCCULT BLOOD,URINE SMALL (Neg); UROBILINOGEN,URINE 0.2 E.U/dL (0.2-1.0)
[2021-04-27 14:50] LABS: WBC,URINE 0-4 /HPF (0-4)
[2021-04-27 14:51] LABS: BACTERIA,URINE FEW /HPF (Neg); MUCUS STRANDS NONE SEEN /LPF (Neg); SQUAMOUS EPITHELIAL CELL,UR MODERATE /LPF (FEW)
[2021-04-27 15:28] LABS: RHEUM FACTOR QUAL REFLEX TITER NEGATIVE (Neg)
[2021-04-28 22:52] LABS: % IRON SATURATION 11 % (11-46); IRON 41 UG/DL (49-151); TOTAL IRON BINDING CAPACITY 376 UG/DL (259-388)
== END 2021-04-27 23:00 | disposition home or self-care (01) ==
LOC: LAB 14:43
PROVIDERS: ATTEND Family Medicine
DX: Z00.00 Encounter for general adult medical examination without abnormal findings (principal); R05.9 Cough, unspecified; M40.294 Other kyphosis, thoracic region
CPT/HCPCS: 36415; 71046; 80053; 80061; 81001; 82330; 82728; 83540; 83550; 83970; 84439; 84443; 85025; 85651; 86140; 86430

== ENCOUNTER 2021-05-30 12:02 | Outpatient (CLI) | payer BC | END 2021-05-30 23:59 | disposition home or self-care (01) | LOC: CARD DIAG 12:02 | PROVIDERS: ATTEND Internal Medicine Interventional Cardiology | DX: I34.0 Nonrheumatic mitral (valve) insufficiency (principal) | CPT/HCPCS: 93306 ==

== ENCOUNTER 2021-06-02 14:54 | Outpatient (CLI) | payer BC ==
[2021-06-02 15:38] LABS: FERRITIN 72 NG/ML (8-252)
[2021-06-02 15:43] LABS: % IRON SATURATION 34 % (11-46); IRON 122 UG/DL (49-151); TOTAL IRON BINDING CAPACITY 360 UG/DL (259-388)
== END 2021-06-02 23:59 | disposition home or self-care (01) ==
LOC: LAB 14:54
PROVIDERS: ATTEND Family Medicine
DX: E61.1 Iron deficiency (principal)
CPT/HCPCS: 36415; 82728; 83540; 83550

== ENCOUNTER 2021-08-29 22:18 | Emergency (ER) | payer BC ==
[~2021-08-29] VITALS: Ht 149.9 cm; Wt 70.0 kg
[2021-08-29 22:21] VITALS: BP 111/79
[2021-08-29] MEDS ORDERED: CYCL-1 PO (22:43)
[2021-08-29] MEDS ORDERED: ketorolac trometh. 30mg/ml inj. IM ONE (22:45)
== END 2021-08-29 22:52 | disposition home or self-care (01) ==
LOC: ER 22:19
DX: M54.59 Other low back pain (principal); F17.210 Nicotine dependence, cigarettes, uncomplicated; F41.9 Anxiety disorder, unspecified; Z88.8 Allergy status to other drugs, medicaments and biological substances; Z88.6 Allergy status to analgesic agent; Z79.899 Other long term (current) drug therapy; X50.0XXA Overexertion from strenuous movement or load, initial encounter; Y93.89 Activity, other specified; Y92.89 Other specified places as the place of occurrence of the external cause; Y99.8 Other external cause status
CPT/HCPCS: 96372; 99283; J1885

== ENCOUNTER 2021-09-20 09:00 | Emergency (ER) | payer OTHER ==
[~2021-09-20] VITALS: Ht 149.9 cm; Wt 68.2 kg
[~2021-09-20 09:00] MED LIST changes: +CYCL-1 PO
[2021-09-20 09:05] VITALS: BP 139/73
== END 2021-09-20 09:49 | disposition home or self-care (01) ==
LOC: ER 09:00 → EEVIPCON 09:00 → ER 09:49
DX: S62.511A Displaced fracture of proximal phalanx of right thumb, initial encounter for closed fracture (principal); Z85.9 Personal history of malignant neoplasm, unspecified; Z86.73 Personal history of transient ischemic attack (TIA), and cerebral infarction without residual deficits; Z98.891 History of uterine scar from previous surgery; Z90.710 Acquired absence of both cervix and uterus; Z90.5 Acquired absence of kidney; Z72.89 Other problems related to lifestyle; Z88.8 Allergy status to other drugs, medicaments and biological substances; Z79.899 Other long term (current) drug therapy; X50.1XXA Overexertion from prolonged static or awkward postures, initial encounter; Y93.89 Activity, other specified; Y92.89 Other specified places as the place of occurrence of the external cause; Y99.8 Other external cause status
CPT/HCPCS: 29125; 73140; 99283

== ENCOUNTER 2021-10-06 09:50 | Outpatient (CLI) | payer BC ==
[2021-10-06 10:14] LABS: CLARITY,URINE CLEAR (Clear); GLUCOSE, URINE NEGATIVE (Neg); KETONES,URINE NEGATIVE (Neg); LEUKOCYTE ESTERASE ,URINE NEGATIVE (Neg); NITRITES, URINE NEGATIVE (Neg); OCCULT BLOOD,URINE SMALL (Neg); PROTEIN,URINE NEGATIVE (Neg); UROBILINOGEN,URINE 0.2 E.U/dL (0.2-1.0)
[2021-10-06 10:16] LABS: COLOR,URINE STRAW (Yellow); UA COLLECTION TYPE CLN CATCH MIDSTREAM
[2021-10-06 10:22] LABS: BACTERIA,URINE NONE SEEN /HPF (Neg); MUCUS STRANDS NONE SEEN /LPF (Neg); RBC,URINE 0-2 /HPF (0-2); SQUAMOUS EPITHELIAL CELL,UR FEW /LPF (FEW); WBC,URINE 0-4 /HPF (0-4)
[2021-10-06 15:36] LABS: BASOPHILS # (AUTO) 0.1 X10'3 (0-0.2); BASOPHILS % (AUTO) 1.1 % (0-1); EOSINOPHILS # (AUTO) 0.3 X10'3 (0-0.9); EOSINOPHILS % (AUTO) 4.4 % (0-6); HEMATOCRIT 42.7 % (35.0-45.0); HEMOGLOBIN 14.3 g/dl (12.0-16.0); LYMPHOCYTES # (AUTO) 1.6 X10'3 (1.1-4.8); LYMPHOCYTES % (AUTO) 21.5 % (21-51); MEAN CORPUSCULAR HEMOGLOBIN 31.3 PG (27.0-31.0); MEAN CORPUSCULAR HGB CONC 33.5 g/dL (33.0-36.5); MEAN CORPUSCULAR VOLUME 93.3 FL (78-98); MEAN PLATELET VOLUME 7.7 FL (7.4-10.4); MONOCYTES # (AUTO) 0.5 X10'3 (0-0.9); MONOCYTES % (AUTO) 6.4 % (2-12); NEUTROPHILS # (AUTO) 4.8 X10'3 (1.8-7.7); NEUTROPHILS % (AUTO) 66.6 % (42-75); PLATELET COUNT 264 X10'3 (140-440); RED BLOOD COUNT 4.57 X10'6 (4.20-5.60); RED CELL DISTRIBUTION WIDTH 13.2 % (11.5-14.5); WHITE BLOOD COUNT 7.3 X10'3 (4.5-11.0)
[2021-10-06 15:49] LABS: ALANINE AMINOTRANSFERASE 26 U/L (12-78); ALBUMIN/GLOBULIN RATIO 1.3 (1.1-1.5); ALKALINE PHOSPHATASE 64 IU/L (46-116); ANION GAP 9 (8-16); ASPARTATE AMINO TRANSFERASE 13 U/L (10-37); BILIRUBIN,TOTAL 0.8 MG/DL (0.1-1.0); BLOOD UREA NITROGEN 11 MG/DL (7-18); BUN/CREATININE RATIO 8.7 (6.6-38.0); CALCIUM 8.9 MG/DL (8.5-10.1); CHLORIDE 105 MMOL/L (99-107); CREATININE 1.26 MG/DL (0.40-0.90); GLUCOSE 92 MG/DL (70-104); POTASSIUM 4.2 MMOL/L (3.5-5.1); SODIUM 141 MMOL/L (135-145); TOTAL CARBON DIOXIDE 26.8 MMOL/L (24-32); TOTAL PROTEIN 7.1 G/DL (6.4-8.2); eGFR 43 ML/MIN
[2021-10-06 16:01] LABS: CHOL/HDL RATIO 2.7 (0.00-4.99); CHOLESTEROL 201 MG/DL (0-200); HDL CHOLESTEROL 74 MG/DL (35-60); LDL CHOLESTEROL 100 MG/DL (50-100); TRIGLYCERIDES 108 MG/DL (20-135)
== END 2021-10-06 23:59 | disposition home or self-care (01) ==
LOC: LAB 09:50
PROVIDERS: ATTEND Family Medicine
DX: Z00.01 Encounter for general adult medical examination with abnormal findings (principal)
CPT/HCPCS: 36415; 80053; 80061; 81001; 83001; 84439; 84443; 85025

== ENCOUNTER 2021-11-25 11:11 | Outpatient (CLI) | payer OTHER | END 2021-11-25 23:59 | disposition home or self-care (01) | LOC: RAD 11:11 | PROVIDERS: ATTEND Family Medicine | DX: S63.641A Sprain of metacarpophalangeal joint of right thumb, initial encounter (principal); S53.31XA Traumatic rupture of right ulnar collateral ligament, initial encounter; M19.041 Primary osteoarthritis, right hand; M18.9 Osteoarthritis of first carpometacarpal joint, unspecified; X58.XXXA Exposure to other specified factors, initial encounter; Y93.89 Activity, other specified; Y92.89 Other specified places as the place of occurrence of the external cause; Y99.8 Other external cause status | CPT/HCPCS: 73718 ==

== ENCOUNTER 2022-01-02 10:49 | Outpatient (CLI) | payer BC | END 2022-01-02 23:59 | disposition home or self-care (01) | LOC: 64 CT 10:49 | PROVIDERS: ATTEND Family Medicine | DX: N81.6 Rectocele (principal); M47.819 Spondylosis without myelopathy or radiculopathy, site unspecified; Z90.5 Acquired absence of kidney | CPT/HCPCS: 74176 ==

== ENCOUNTER 2022-04-26 08:51 | Outpatient (CLI) | payer BC ==
[2022-04-26 09:33] LABS: BASOPHILS # (AUTO) 0.1 X10'3 (0-0.2); BASOPHILS % (AUTO) 1.2 % (0-1); EOSINOPHILS # (AUTO) 0.2 X10'3 (0-0.9); EOSINOPHILS % (AUTO) 2.9 % (0-6); HEMATOCRIT 42.8 % (35.0-45.0); HEMOGLOBIN 14.6 g/dl (12.0-16.0); LYMPHOCYTES # (AUTO) 1.5 X10'3 (1.1-4.8); LYMPHOCYTES % (AUTO) 21.6 % (21-51); MEAN CORPUSCULAR HEMOGLOBIN 31.6 PG (27.0-31.0); MEAN CORPUSCULAR HGB CONC 34.2 g/dL (33.0-36.5); MEAN CORPUSCULAR VOLUME 92.4 FL (78-98); MEAN PLATELET VOLUME 8.3 FL (7.4-10.4); MONOCYTES # (AUTO) 0.5 X10'3 (0-0.9); MONOCYTES % (AUTO) 7.2 % (2-12); NEUTROPHILS # (AUTO) 4.6 X10'3 (1.8-7.7); NEUTROPHILS % (AUTO) 67.1 % (42-75); PLATELET COUNT 284 X10'3 (140-440); RED BLOOD COUNT 4.63 X10'6 (4.20-5.60); RED CELL DISTRIBUTION WIDTH 12.7 % (11.5-14.5); WHITE BLOOD COUNT 6.8 X10'3 (4.5-11.0)
[2022-04-26 09:45] LABS: CLARITY,URINE CLEAR (Clear); COLOR,URINE YELLOW (Yellow); GLUCOSE, URINE NEGATIVE (Neg); KETONES,URINE NEGATIVE (Neg); LEUKOCYTE ESTERASE ,URINE NEGATIVE (Neg); NITRITES, URINE NEGATIVE (Neg); OCCULT BLOOD,URINE TRACE-INTACT (Neg); PROTEIN,URINE NEGATIVE (Neg); UROBILINOGEN,URINE 0.2 E.U/dL (0.2-1.0)
[2022-04-26 09:47] LABS: UA COLLECTION TYPE CLN CATCH MIDSTREAM
[2022-04-26 09:58] LABS: BACTERIA,URINE NONE SEEN /HPF (Neg); MUCUS STRANDS NONE SEEN /LPF (Neg); RBC,URINE NONE SEEN /HPF (0-2); SQUAMOUS EPITHELIAL CELL,UR FEW /LPF (FEW); WBC,URINE NONE SEEN /HPF (0-4)
[2022-04-26 09:58] LABS: ALANINE AMINOTRANSFERASE 32 U/L (12-78); ALBUMIN 3.9 G/DL (3.4-5.0); ALBUMIN/GLOBULIN RATIO 1.1 (1.1-1.5); ALKALINE PHOSPHATASE 83 IU/L (46-116); ANION GAP 9 (8-16); ASPARTATE AMINO TRANSFERASE 19 U/L (10-37); BLOOD UREA NITROGEN 13 MG/DL (7-18); BUN/CREATININE RATIO 11.2 (6.6-38.0); CALCIUM 8.9 MG/DL (8.5-10.1); CHLORIDE 103 MMOL/L (99-107); CHOLESTEROL 197 MG/DL (0-200); CREATININE 1.16 MG/DL (0.40-0.90); GLUCOSE 87 MG/DL (70-104); LDL CHOLESTEROL 110 MG/DL (50-100); POTASSIUM 3.5 MMOL/L (3.5-5.1); SODIUM 139 MMOL/L (135-145); TOTAL CARBON DIOXIDE 27.2 MMOL/L (24-32); TOTAL PROTEIN 7.3 G/DL (6.4-8.2); TRIGLYCERIDES 97 MG/DL (20-135); eGFR 47 ML/MIN
[2022-04-26 11:40] LABS: CHOL/HDL RATIO 2.9 (0.00-4.99); HDL CHOLESTEROL 67 MG/DL (35-60)
== END 2022-04-26 23:59 | disposition home or self-care (01) ==
LOC: LAB 08:51
PROVIDERS: ATTEND Family Medicine
DX: Z00.01 Encounter for general adult medical examination with abnormal findings (principal)
CPT/HCPCS: 36415; 80053; 80061; 81001; 84439; 84443; 85025; 85651; 86038

== ENCOUNTER 2022-05-01 12:48 | Outpatient (CLI) | payer BC | END 2022-05-01 23:59 | disposition home or self-care (01) | LOC: LAB 12:48 | PROVIDERS: ATTEND Family Medicine | DX: Z00.01 Encounter for general adult medical examination with abnormal findings (principal) | CPT/HCPCS: 36415; 83001; 84439; 84443 ==

== ENCOUNTER 2022-07-10 14:43 | Outpatient (CLI) | payer BC | END 2022-07-10 23:59 | disposition home or self-care (01) | LOC: RAD 14:43 | PROVIDERS: ATTEND Family Medicine | DX: R06.02 Shortness of breath (principal); I70.0 Atherosclerosis of aorta; M47.814 Spondylosis without myelopathy or radiculopathy, thoracic region | CPT/HCPCS: 71046 ==

== ENCOUNTER 2022-10-10 15:00 | Outpatient (CLI) | payer BC ==
[~2022-10-10 15:00] MED LIST changes: +CEPH-585 PO
== END 2022-10-10 23:59 | disposition home or self-care (01) ==
LOC: VAS 15:00
PROVIDERS: ATTEND Family Medicine
DX: I87.2 Venous insufficiency (chronic) (peripheral) (principal); R22.43 Localized swelling, mass and lump, lower limb, bilateral
CPT/HCPCS: 93970

== ENCOUNTER 2023-01-12 14:10 | Outpatient (CLI) | payer BC | END 2023-01-12 23:59 | disposition home or self-care (01) | LOC: RAD 14:10 | PROVIDERS: ATTEND Family Medicine | DX: M47.816 Spondylosis without myelopathy or radiculopathy, lumbar region (principal); M48.061 Spinal stenosis, lumbar region without neurogenic claudication; M51.26 Other intervertebral disc displacement, lumbar region; R20.0 Anesthesia of skin; Z90.5 Acquired absence of kidney | CPT/HCPCS: 72148 ==

== ENCOUNTER 2023-01-19 01:31 | Emergency (ER) | payer BC ==
[~2023-01-19] VITALS: Ht 152.4 cm; Wt 77.3 kg
[2023-01-19] MEDS ORDERED: ketorolac tromethamine 15mg/ml inj. IM ONE (02:00)
[2023-01-19] MEDS ORDERED: acetaminophen 325mg tablet PO ONE (02:00)
[2023-01-19] MEDS ORDERED: LIDOcaine 5% patch TP SCH (02:00)
[2023-01-19 02:40] VITALS: BP 125/82
== END 2023-01-19 02:41 | disposition home or self-care (01) ==
LOC: ER 01:32
DX: M54.50 Low back pain, unspecified (principal); J44.9 Chronic obstructive pulmonary disease, unspecified; Z88.6 Allergy status to analgesic agent; Z88.8 Allergy status to other drugs, medicaments and biological substances; Z98.890 Other specified postprocedural states; Z90.710 Acquired absence of both cervix and uterus
CPT/HCPCS: 96372; 99283; J1885

== ENCOUNTER 2023-01-31 15:40 | Outpatient (CLI) | payer BC ==
[2023-01-31 20:12] LABS: BASOPHILS # (AUTO) 0.1 X10'3 (0-0.2); BASOPHILS % (AUTO) 1.5 % (0-1); EOSINOPHILS # (AUTO) 0.2 X10'3 (0-0.9); EOSINOPHILS % (AUTO) 4.2 % (0-6); HEMOGLOBIN 13.6 g/dl (12.0-16.0); LYMPHOCYTES # (AUTO) 1.7 X10'3 (1.1-4.8); LYMPHOCYTES % (AUTO) 28.1 % (21-51); MEAN CORPUSCULAR HEMOGLOBIN 30.9 PG (27.0-31.0); MEAN CORPUSCULAR VOLUME 90.9 FL (78-98); MEAN PLATELET VOLUME 8.2 FL (7.4-10.4); MONOCYTES # (AUTO) 0.3 X10'3 (0-0.9); MONOCYTES % (AUTO) 5.6 % (2-12); NEUTROPHILS # (AUTO) 3.6 X10'3 (1.8-7.7); NEUTROPHILS % (AUTO) 60.6 % (42-75); PLATELET COUNT 267 X10'3 (140-440); RED CELL DISTRIBUTION WIDTH 13.8 % (11.5-14.5); WHITE BLOOD COUNT 5.9 X10'3 (4.5-11.0)
[2023-01-31 20:30] LABS: ALANINE AMINOTRANSFERASE 36 U/L (12-78); ALBUMIN 3.9 G/DL (3.4-5.0); ALBUMIN/GLOBULIN RATIO 1.4 (1.1-1.5); ALKALINE PHOSPHATASE 78 IU/L (46-116); ANION GAP 10 (8-16); ASPARTATE AMINO TRANSFERASE 20 U/L (10-37); BLOOD UREA NITROGEN 12 MG/DL (7-18); CALCIUM 8.8 MG/DL (8.5-10.1); CHLORIDE 106 MMOL/L (99-107); CHOL/HDL RATIO 2.8 (0.00-4.99); CHOLESTEROL 172 MG/DL (0-200); GLUCOSE 120 MG/DL (70-104); HDL CHOLESTEROL 62 MG/DL (35-60); LDL CHOLESTEROL 86 MG/DL (50-100); POTASSIUM 3.8 MMOL/L (3.5-5.1); SODIUM 141 MMOL/L (135-145); TOTAL CARBON DIOXIDE 24.6 MMOL/L (24-32); TOTAL PROTEIN 6.7 G/DL (6.4-8.2); TRIGLYCERIDES 91 MG/DL (20-135); eGFR 45 ML/MIN
[2023-01-31 20:49] LABS: CLARITY,URINE CLEAR (Clear); COLOR,URINE YELLOW (Yellow); GLUCOSE, URINE NEGATIVE (Neg); KETONES,URINE NEGATIVE (Neg); LEUKOCYTE ESTERASE ,URINE NEGATIVE (Neg); NITRITES, URINE NEGATIVE (Neg); OCCULT BLOOD,URINE TRACE-INTACT (Neg); PROTEIN,URINE NEGATIVE (Neg); UROBILINOGEN,URINE 0.2 E.U/dL (0.2-1.0)
[2023-01-31 20:52] LABS: UA COLLECTION TYPE CLN CATCH MIDSTREAM
[2023-01-31 20:55] LABS: MUCUS STRANDS FEW /LPF (Neg); SQUAMOUS EPITHELIAL CELL,UR MODERATE /LPF (FEW)
[2023-01-31 20:56] LABS: BACTERIA,URINE NONE SEEN /HPF (Neg); RBC,URINE 0-2 /HPF (0-2); WBC,URINE 0-4 /HPF (0-4)
== END 2023-01-31 23:59 | disposition home or self-care (01) ==
LOC: LAB 15:40
PROVIDERS: ATTEND Family Medicine
DX: E61.1 Iron deficiency (principal); E53.8 Deficiency of other specified B group vitamins; R53.83 Other fatigue; E78.5 Hyperlipidemia, unspecified
CPT/HCPCS: 36415; 80053; 80061; 81001; 82607; 82746; 84439; 84443; 85025; 87040

== ENCOUNTER → 2023-04-13 | Outpatient (CLI) | payer BC | END | disposition home or self-care (01) | LOC: VAS 14:06 | PROVIDERS: ATTEND Radiology Vascular & Interventional Radiology | DX: I82.401 Acute embolism and thrombosis of unspecified deep veins of right lower extremity (principal); I83.893 Varicose veins of bilateral lower extremities with other complications | CPT/HCPCS: 93971 ==

== ENCOUNTER → 2023-07-06 | Outpatient (CLI) | payer BC ==
[~2023-07-06] MED LIST changes: -CEPH-585 PO; -CLOP75TA15 PO; -CYCL-1 PO; +TIRZ7.5P SQ
== END | disposition home or self-care (01) ==
LOC: RAD 13:00
PROVIDERS: ATTEND Family Medicine
DX: M89.8X6 Other specified disorders of bone, lower leg (principal); M25.571 Pain in right ankle and joints of right foot; R60.0 Localized edema
CPT/HCPCS: 73590; 73721

== ENCOUNTER 2023-07-22 01:52 | Emergency (ER) | payer BC ==
[~2023-07-22] VITALS: Ht 149.9 cm; Wt 61.6 kg
[2023-07-22 02:33] LABS: BASOPHILS # (AUTO) 0.1 X10'3 (0-0.2); BASOPHILS % (AUTO) 0.7 % (0-1); EOSINOPHILS # (AUTO) 0.3 X10'3 (0-0.9); EOSINOPHILS % (AUTO) 2.7 % (0-6); HEMATOCRIT 41.1 % (35.0-45.0); HEMOGLOBIN 14.4 g/dl (12.0-16.0); LYMPHOCYTES # (AUTO) 2.6 X10'3 (1.1-4.8); LYMPHOCYTES % (AUTO) 25.1 % (21-51); MEAN CORPUSCULAR HEMOGLOBIN 31.9 PG (27.0-31.0); MEAN CORPUSCULAR VOLUME 91.2 FL (78-98); MEAN PLATELET VOLUME 7.8 FL (7.4-10.4); MONOCYTES # (AUTO) 1.3 X10'3 (0-0.9); MONOCYTES % (AUTO) 12.3 % (2-12); NEUTROPHILS % (AUTO) 59.2 % (42-75); PLATELET COUNT 305 X10'3 (140-440); RED BLOOD COUNT 4.51 X10'6 (4.20-5.60); RED CELL DISTRIBUTION WIDTH 13.4 % (11.5-14.5); WHITE BLOOD COUNT 10.2 X10'3 (4.5-11.0)
[2023-07-22 02:43] LABS: ALANINE AMINOTRANSFERASE 39 U/L (12-78); ALBUMIN 3.5 G/DL (3.4-5.0); ALBUMIN/GLOBULIN RATIO 1.2 (1.1-1.5); ALKALINE PHOSPHATASE 64 IU/L (46-116); ANION GAP 8 (8-16); ASPARTATE AMINO TRANSFERASE 12 U/L (10-37); BILIRUBIN,TOTAL 1.2 MG/DL (0.1-1.0); BLOOD UREA NITROGEN 21 MG/DL (7-18); BUN/CREATININE RATIO 15.2 (10.0-20.0); CALCIUM 8.9 MG/DL (8.5-10.1); CHLORIDE 95 MMOL/L (99-107); CREATININE 1.38 MG/DL (0.40-0.90); GLUCOSE 102 MG/DL (70-104); LIPASE 33 U/L (16-77); POTASSIUM 3.2 MMOL/L (3.5-5.1); SODIUM 128 MMOL/L (135-145); TOTAL CARBON DIOXIDE 24.7 MMOL/L (24-32); TOTAL PROTEIN 6.4 G/DL (6.4-8.2); eCRCL 28 ML/MIN; eGFR 39 ML/MIN
[2023-07-22 02:54] LABS: BILIRUBIN,URINE NEGATIVE (Neg); CLARITY,URINE CLEAR (Clear); COLOR,URINE YELLOW (Yellow); GLUCOSE, URINE NEGATIVE (Neg); KETONES,URINE NEGATIVE (Neg); LEUKOCYTE ESTERASE ,URINE NEGATIVE (Neg); NITRITES, URINE NEGATIVE (Neg); OCCULT BLOOD,URINE TRACE-INTACT (Neg); PROTEIN,URINE NEGATIVE (Neg); UA COLLECTION TYPE CLN CATCH MIDSTREAM; UROBILINOGEN,URINE 0.2 E.U/dL (0.2-1.0)
[2023-07-22 03:14] LABS: RBC,URINE 0-2 /HPF (0-2); WBC,URINE 0-4 /HPF (0-4)
[2023-07-22 03:15] LABS: BACTERIA,URINE NONE SEEN /HPF (Neg); MUCUS STRANDS FEW /LPF (Neg); SQUAMOUS EPITHELIAL CELL,UR FEW /LPF (FEW)
[2023-07-22 04:28] LABS: ETHANOL < 10 MG/DL (<10)
[2023-07-22] MEDS ORDERED: DICY10CA88 PO (04:29)
[2023-07-22] MEDS ORDERED: ONDA4TAB12 PO (04:29)
[2023-07-22] MEDS ORDERED: cyclobenzaprine 10mg tablet PO ONE (04:30)
[2023-07-22] MEDS ORDERED: dicyclomine 10 MG capsule PO ONE (04:30)
[2023-07-22 04:51] LABS: URINE AMPHETAMINE SCREEN NEGATIVE (Neg); URINE BARBITUATE SCREEN NEGATIVE (Neg); URINE BENZODIAZEPINES SCREEN POSITIVE (Neg); URINE CANNABINOID SCREEN NEGATIVE (Neg); URINE COCAINE SCREEN NEGATIVE (Neg); URINE METHADONE SCREEN NEGATIVE (Neg); URINE OPIATE SCREEN NEGATIVE (Neg); URINE PHENCYCLIDINE SCREEN NEGATIVE (Neg)
[2023-07-22 05:13] VITALS: BP 114/71; PULSE 72; RESP 17; TEMP 98.3; O2SAT 98
[2023-07-24] MEDS ORDERED: CYCL-1 PO (18:13)
== END 2023-07-22 05:24 | disposition home or self-care (01) ==
LOC: ER 01:53
DX: J11.1 Influenza due to unidentified influenza virus with other respiratory manifestations (principal); R11.10 Vomiting, unspecified; R10.9 Unspecified abdominal pain; F41.9 Anxiety disorder, unspecified; Z98.890 Other specified postprocedural states; Z88.8 Allergy status to other drugs, medicaments and biological substances; Z79.899 Other long term (current) drug therapy; Z88.6 Allergy status to analgesic agent
CPT/HCPCS: 36415; 80053; 80305; 80320; 81001; 83690; 85025; 99284; J7030

== ENCOUNTER 2023-10-17 12:42 | Outpatient (CLI) | payer BC ==
[~2023-10-17 12:42] MED LIST changes: +CYCL-1 PO; +ONDA4TAB12 PO
== END 2023-10-17 23:59 | disposition home or self-care (01) ==
LOC: LAB 12:42
PROVIDERS: ATTEND Nurse Practitioner Family
DX: M19.041 Primary osteoarthritis, right hand (principal); L03.90 Cellulitis, unspecified
CPT/HCPCS: 73140

== ENCOUNTER 2025-04-08 16:30 | Outpatient (CLI) | payer MEDICARE, BC ==
[~2025-04-08 16:30] MED LIST changes: +ALPR0.5T9; -CYCL-1 PO; +ESZO3TAB44 PO; +ONDA-245 PO; -ONDA4TAB12 PO; +PANT40TA54 PO; -TIRZ7.5P SQ
--- NOTE | 2025-04-09 13:38 | RADIOLOGY REPORT ---
PROCEDURE: MR MRI LUMBAR SPINE INDICATION: LOW BACK PAIN, UNSPECIFIED Exam Date: 04/08/2025 04:26 PM COMPARISON: MR MRI LOWER EXTREMITY RIGHT on DOS: 07/06/23, MRI LUMBAR SPINE on DOS: 01/12/23 TECHNIQUE: MRI lumbar spine without intravenous contrast. FINDINGS: Multilevel disc degeneration. Alignment: Grade 1 anterolisthesis of L2 on L3. Vertebrae: Chronic Compression deformities of the vertebral bodies: mild at L1 (24%), moderate at L5 (25%). Conus: Conus medullaris terminates at the L1-L2 level. Following axial levels detailed below: T12-L1: Disc desiccation. No spinal canal or neural foraminal stenosis. Facet arthrosis. L1-2: Disc desiccation. No spinal canal stenosis. Severe left foraminal stenosis with potential left exiting L1 nerve root compression. Facet arthrosis. L2-3: Grade 2 anterolisthesis of L2 on L3 by 3.6 mm. Disc desiccation. No spinal canal or neural foraminal stenosis. Facet arthrosis. L3-4: Disc desiccation and 2.5 mm disc bulge. Mild spinal canal stenosis. No neural foraminal stenosis. Mild right lateral recess stenosis. Facet arthrosis. L4-5: Disc desiccation. Severe disc height loss. Disc bulge with superimposed disc protrusion. Mild spinal canal stenosis. Mild bilateral lateral recess stenosis. Mild bilateral foraminal stenosis. Facet arthrosis. L5-S1: The disc configuration is normal. No spinal canal or neural foraminal stenosis. Facet arthrosis. IMPRESSION: Multilevel disc degeneration. Chronic compression deformities: mild at L1 (24%), moderate at L5 (25%). Multilevel spinal canal stenosis, most pronounced and mild at L4-L5. Multilevel lateral recess stenosis, most pronounced and mild at L4-L5. Multilevel foraminal stenosis, most pronounced and severe at L1-L2 with potential left exiting L1 nerve root compression.
== END 2025-04-08 23:59 | disposition home or self-care (01) ==
LOC: MRI02 16:30
PROVIDERS: ATTEND Family Medicine
DX: M51.16 Intervertebral disc disorders with radiculopathy, lumbar region (principal); M54.50 Low back pain, unspecified; M43.16 Spondylolisthesis, lumbar region; M48.061 Spinal stenosis, lumbar region without neurogenic claudication; M47.816 Spondylosis without myelopathy or radiculopathy, lumbar region
CPT/HCPCS: 72148